=== PATIENT | female | born 1995 | race Caucasian/White ===

== ENCOUNTER 2017-08-04 14:34 | Outpatient (CLI) | payer BC | END 2017-08-04 16:45 | disposition home or self-care (01) | LOC: OBT 14:34 → L-D 14:35 → OBT 16:45 | DX: O36.5930 Maternal care for other known or suspected poor fetal growth, third trimester, not applicable or unspecified (principal); Z3A.37 37 weeks gestation of pregnancy | CPT/HCPCS: 76815; 76818 ==

== ENCOUNTER 2017-08-15 07:17 | Inpatient (IN) | payer BC ==
[2017-08-15] MEDS: LACTATED RINGER'S 500 ML IV ×2 (07:20→09:58)
[2017-08-15] MEDS ORDERED: LACTATED RINGER'S 500 ML IV (07:58)
[2017-08-15] MEDS ORDERED: MISOPROSTOL 200 MCG TAB PR ×2 (08:00→11:00)
[2017-08-15] MEDS ORDERED: OXYTOCIN 30 UNITS/LR 500 ML IV ×3 (08:00→11:00)
[2017-08-15] MEDS ORDERED: CLINDAMYCIN 900 MG/D5W (PMX) 50 ML IVPB (08:00)
[2017-08-15] MEDS ORDERED: METHYLERGONOVINE 0.2 MG INJ IM ×2 (08:00→11:00)
[2017-08-15] MEDS ORDERED: CARBOPROST 250 MCG INJ IM ×2 (08:00→11:00)
[2017-08-15] MEDS ORDERED: GENTAMICIN 80 MG in SOD CHLORIDE 0.9% 100 ML IVPB (08:00)
[2017-08-15] MEDS: GENTAMICIN 80 MG/NS (PMX) 50 ML IVPB (08:33)
[2017-08-15 08:38] LABS: ADD MAN DIFF? NO
[2017-08-15 08:43] LABS: BASOPHILS % 0.3 % (0.0-2.0); EOSINOPHILS % 0.5 % (0.0-7.0); HEMATOCRIT 30.1 % (37.0-47.0); HEMOGLOBIN 10.1 g/dl (12.0-16.0); LYMPHOCYTES # 1.4 10^3/ul (0.8-2.9); LYMPHOCYTES % 23.2 % (15.0-51.0); MEAN CORPUSCULAR HEMOGLOBIN 28.7 pg (29.0-33.0); MEAN CORPUSCULAR HGB CONC 33.6 g/dl (32.0-37.0); MEAN CORPUSCULAR VOLUME 85.5 fl (82.0-101.0); MEAN PLATELET VOLUME 11.7 fl (7.4-10.4); MONOCYTE # 0.4 10^3/ul (0.3-0.9); MONOCYTES % 6.4 % (0.0-11.0); NEUTROPHIL # 4.2 10^3/ul (1.6-7.5); NEUTROPHILS % 69.1 % (39.0-77.0); PLATELET COUNT 230 10^3/UL (140-415); RED BLOOD COUNT 3.52 10^6/ul (4.20-5.40); RED CELL DISTRIBUTION WIDTH 13.1 % (11.5-14.5)
[2017-08-15 08:43] LABS: WHITE BLOOD COUNT 6.1 10^3/ul (4.8-10.8)
[2017-08-15 09:06] LABS: INR 0.82; PROTIME 11.4 Sec (11.9-14.9); PT RATIO 0.9
[2017-08-15] MEDS: METOCLOPRAMIDE 10 MG INJ IV (09:18)
[2017-08-15] MEDS: FAMOTIDINE 20 MG INJ IV (09:19)
[2017-08-15] MEDS: CITRIC ACID/SODIUM CITRATE 15 ML CUP PO (09:20)
[2017-08-15] MEDS ORDERED: BUPIVACAINE 0.75%/DEXT (SPINAL) 2 ML INJ (09:24)
[2017-08-15] MEDS ORDERED: morphine SULFATE/PF (10 MG/10 ML) INJ (09:25)
[2017-08-15] MEDS: LACTATED RINGER'S 1,000 ML IV ×3 (09:29→18:10)
[2017-08-15] MEDS ORDERED: PHENYLephrine (100 MCG/ML) 5ML SYG (09:51)
[2017-08-15] MEDS ORDERED: ONDANSETRON 4 MG INJ (09:55)
[2017-08-15] MEDS ORDERED: ONDANSETRON 4 MG INJ IV ×2 (10:30→11:00)
[2017-08-15] MEDS ORDERED: HYDROmorphONE (0.2 MG/ML) 10ML SYG IV (10:30)
[2017-08-15] MEDS ORDERED: DIPHENHYDRAMINE 50 MG INJ IV ×3 (10:30→11:00)
[2017-08-15] MEDS ORDERED: MEPERIDINE 25 MG INJ IV (10:30)
[2017-08-15] MEDS ORDERED: NALOXONE (0.4 MG/ML) INJ IV ×2 (10:30→11:00)
[2017-08-15] MEDS ORDERED: ZOLPIDEM 5 MG TAB PO ×2 (10:30→11:00)
[2017-08-15] MEDS ORDERED: PROCHLORPERAZINE 10 MG INJ IV (10:30)
[2017-08-15] MEDS ORDERED: FENTAnyl 50 MCG/ML VIAL IV (10:30)
[2017-08-15] MEDS ORDERED: HYDROmorphONE 0.5 MG/0.5 ML SYG IV ×4 (10:30→11:00)
[2017-08-15] MEDS ORDERED: KETOROLAC 30 MG INJ IV ×2 (10:30)
[2017-08-15 10:40] LABS: HEPATITIS B SURFACE ANTIGEN NEGATIVE (NEGATIVE)
[2017-08-15] MEDS ORDERED: OXYCODONE/ACETAMINOPHEN (5/325) TAB PO ×2 (11:00)
[2017-08-15] MEDS: ONDANSETRON 4 MG INJ IV (13:39)
[2017-08-15] MEDS: OXYTOCIN 30 UNITS/LR 500 ML IV (14:47)
[2017-08-15] MEDS: LANOLIN 7 GM TUBE TOP (18:10)
[2017-08-15] MEDS: SENNA/DOCUSATE NA (8.6MG/50MG) TAB PO (20:44)
[2017-08-15 22:33] LABS: RAPID PLASMA REAGIN NONREACTIVE (NR)
[2017-08-16] MEDS: LACTATED RINGER'S 1,000 ML IV ×2 (03:06→10:42)
[2017-08-16] MEDS: KETOROLAC 30 MG INJ IV (06:02)
[2017-08-16 08:15] LABS: ADD MAN DIFF? NO
[2017-08-16 08:25] LABS: WHITE BLOOD COUNT 7.2 10^3/ul (4.8-10.8)
[2017-08-16 08:25] LABS: BASOPHILS % 0.3 % (0.0-2.0); EOSINOPHILS % 0.1 % (0.0-7.0); HEMATOCRIT 25.2 % (37.0-47.0); HEMOGLOBIN 8.4 g/dl (12.0-16.0); LYMPHOCYTES # 1.1 10^3/ul (0.8-2.9); MEAN CORPUSCULAR HEMOGLOBIN 28.7 pg (29.0-33.0); MEAN CORPUSCULAR HGB CONC 33.3 g/dl (32.0-37.0); MEAN PLATELET VOLUME 11.9 fl (7.4-10.4); MONOCYTE # 0.5 10^3/ul (0.3-0.9); MONOCYTES % 7.2 % (0.0-11.0); NEUTROPHIL # 5.5 10^3/ul (1.6-7.5); NEUTROPHILS % 76.8 % (39.0-77.0); PLATELET COUNT 191 10^3/UL (140-415); RED BLOOD COUNT 2.93 10^6/ul (4.20-5.40); RED CELL DISTRIBUTION WIDTH 12.9 % (11.5-14.5)
[2017-08-16] MEDS: SENNA/DOCUSATE NA (8.6MG/50MG) TAB PO ×2 (10:25→21:36)
[2017-08-16] MEDS: IBUPROFEN 600 MG TAB PO ×3 (10:25→17:27)
[2017-08-17] MEDS: IBUPROFEN 600 MG TAB PO ×5 (06:00→23:55)
[2017-08-17] MEDS: SENNA/DOCUSATE NA (8.6MG/50MG) TAB PO ×2 (10:24→21:50)
[2017-08-18] MEDS: IBUPROFEN 600 MG TAB PO ×2 (05:45→12:00)
[2017-08-18] MEDS: SENNA/DOCUSATE NA (8.6MG/50MG) TAB PO (09:00)
== END 2017-08-18 15:08 | disposition home or self-care (01) | DRG 766 ==
LOC: L-D 07:17 → PP1 16:12
PROVIDERS: Obstetrics & Gynecology
PROC: 10D00Z1 Extraction of Products of Conception, Low, Open Approach (ICD-10-PCS; principal; 2017-08-15 09:00)
DX: O34.211 Maternal care for low transverse scar from previous cesarean delivery (principal); Z3A.39 39 weeks gestation of pregnancy; Z37.0 Single live birth
CPT/HCPCS: 85025; 85610; 85730; 86592; 86850; 86900; 86901; 87340; 99464